=== PATIENT | female | born 1980 | race African-American/Black ===

== ENCOUNTER 2018-06-14 09:57 | Emergency (ER) | payer OTHER ==
[~2018-06-14] VITALS: Ht 165.1 cm; Wt 56.8 kg
[2018-06-14] MEDS ORDERED: A20IH1 IH (10:02)
[2018-06-14 11:13] VITALS: BP 130/84
== END 2018-06-14 11:43 | disposition home or self-care (01) ==
LOC: EDUNIT# 09:57 → EMS 09:58
DX: R21 Rash and other nonspecific skin eruption (principal); F17.210 Nicotine dependence, cigarettes, uncomplicated; Z79.899 Other long term (current) drug therapy
CPT/HCPCS: 99406

== ENCOUNTER 2018-10-19 12:23 | Emergency (ER) | payer OTHER ==
[~2018-10-19] VITALS: Ht 162.6 cm; Wt 61.4 kg
[~2018-10-19 12:23] MED LIST: A20IH1 IH
[2018-10-19 15:24] VITALS: BP 146/89
== END 2018-10-19 15:33 | disposition home or self-care (01) ==
LOC: EMS 12:23
DX: S90.121A Contusion of right lesser toe(s) without damage to nail, initial encounter (principal); F17.210 Nicotine dependence, cigarettes, uncomplicated; J45.909 Unspecified asthma, uncomplicated; W45.8XXA Other foreign body or object entering through skin, initial encounter; Y93.89 Activity, other specified; Y92.89 Other specified places as the place of occurrence of the external cause; Y99.8 Other external cause status

== ENCOUNTER 2021-09-14 10:31 | Emergency (ER) | payer OTHER ==
[~2021-09-14] VITALS: Ht 165.1 cm; Wt 56.8 kg
[2021-09-14] MEDS ORDERED: KETOROLAC TROMETHAMINE 30 MG/ML VIAL IM ONE (11:30)
[2021-09-14 13:30] VITALS: BP 131/85
== END 2021-09-14 13:43 | disposition home or self-care (01) ==
LOC: EMS 10:31
DX: S93.401A Sprain of unspecified ligament of right ankle, initial encounter (principal); X50.1XXA Overexertion from prolonged static or awkward postures, initial encounter; Y93.89 Activity, other specified; Y92.89 Other specified places as the place of occurrence of the external cause; Y99.8 Other external cause status
CPT/HCPCS: 29515; 73590; 73610; 73630; 96372; 99284; J1885

== ENCOUNTER 2021-11-11 09:47 | Emergency (ER) | payer OTHER ==
[~2021-11-11] VITALS: Ht 170.2 cm; Wt 59.0 kg
[2021-11-11 11:50] VITALS: BP 152/93
== END 2021-11-11 12:35 | disposition home or self-care (01) ==
LOC: EMS 09:49
DX: S50.02XA Contusion of left elbow, initial encounter (principal); J45.909 Unspecified asthma, uncomplicated; W01.0XXA Fall on same level from slipping, tripping and stumbling without subsequent striking against object, initial encounter; Y93.89 Activity, other specified; Y92.89 Other specified places as the place of occurrence of the external cause; Y99.8 Other external cause status
CPT/HCPCS: 99283

== ENCOUNTER 2022-01-27 12:23 | Emergency (ER) | payer OTHER ==
[~2022-01-27] VITALS: Ht 170.2 cm; Wt 54.5 kg
[2022-01-27 12:27] VITALS: BP 138/96
== END 2022-01-27 15:00 | disposition left against medical advice (07) ==
LOC: EMS 12:24
DX: Z53.21 Procedure and treatment not carried out due to patient leaving prior to being seen by health care provider (principal)
CPT/HCPCS: 82962